=== PATIENT | female | born 1945 | race Caucasian/White ===

== ENCOUNTER 2016-12-13 05:00 | Emergency (ER) | payer MEDICARE, OTHER ==
[~2016-12-13] VITALS: Ht 165.1 cm; Wt 85.9 kg
[~2016-12-13 05:00] MED LIST: LISI-567 PO; LOVA20TA PO
[2016-12-13 05:06] VITALS: BP 147/85; PULSE 68; RESP 18; O2SAT 99
[2016-12-13] MEDS ORDERED: Fluorescein 0.6 mg Ophthalmic Strip ONE (05:10)
[2016-12-13] MEDS ORDERED: 0.9% Sodium Chloride Inhalation Solution ONE (05:10)
[2016-12-13] MEDS ORDERED: Tetracaine 0.5% 4 mL Ophthalmic Solution ONE (05:11)
--- NOTE | 2016-12-13 05:15 | ED.REPORT ---
HPI-Eye Problem Date of Service Dec 13, 2016 ED Provider: Ryder Ramírez MD The patient is a 71 year old female with a history of HTN, hypercholesterolemia , hysterectomy, and cholecystectomy not on blood thinners presenting to the ED complaining of left eye pain onset just prior to arrival after accidentally poking her eye with her finger. She admits to photophobia. She denies any decrease in vision. Nursing Notes Stated Complaint: LEFT EYE INJURY Chief Complaint: Eye Nursing Notes Reviewed: Yes Allergies: Coded Allergies: Sulfa (Sulfonamide Antibiotics) (Verified Allergy, Unknown, 12/13/16) methocarbamol (Verified Allergy, Unknown, 12/13/16) Scheduled Lisinopril (Lisinopril) 20 Mg Tablet 20 MG PO BID Lovastatin (Lovastatin) 20 Mg Tablet 20 MG PO HS General Time Seen by MD: 05:15 Chief Complaint Left eye affected Hx Obtained From: Patient Arrived By: Walk-in Sudden in Onset?: Yes Onset Occurred: Just prior to arrival Symptom Duration: Since onset Progression Since Onset: Unchanged Caused by: Poked in eye... (Finger) Context: Occurred at: Home Location: : Eye left Associated with: Reports: Photophobia Exacerbated by: Light Immunizations: All up to date Recent Healthcare: No recent hospitalization, Recent doctor visit Similar Sx Previous: No Past Medical History Past Medical History HTN Hypercholesterolemia Reports: Hypertension Past Surgical History Hysterectomy Cholecystectomy Reports: Cholecystectomy, Hysterectomy Smoking History Never Smoker Social History Alcohol Use: Denies alcohol use Drug Use: Denies drug use Other Social History: Good social support, Ambulatory Status Independent Review of Systems Eyes: Reports: Eye pain left, Photophobia, Denies: Visual loss bilateral Complete sys rev & neg: except as marked. Physical Exam Initial Vital Signs Vital Signs (First) Date Time Temp Pulse Resp B/P Pulse Ox O2 Delivery O2 Flow Rate FiO2 12/13/16 05:06 36.2 68 18 147/85 99 Room Air Initial VS: Reviewed General / Const: Well-developed, Well-nourished ENT: Mucous membranes moist Neck: Supple, Non-tender, Full range of motion Respiratory: Breath sounds normal, No respiratory distress Cardiovascular: Regular rate & rhythm, Heart sounds normal Abdomen / GI: Soft, Non-tender Back: No CVA tenderness Lymphatic: No lymphadenopathy Extremities: Vascular intact, Neuro intact, No swelling, No tenderness Skin: Warm, Dry Neurologic: Alert, Oriented Psychiatric: Mood/affect normal, Behavior normal, Normal thought content Head / Eyes: Normocephalic, PERRL Large subconjunctival hemorrhage to left eye Small scrape off visual portion of the left sclera Procedures Slit Lamp Exam Time: 05:18 Procedure Performed by: ED physician Which Eye: Left Dilating Agent & Anesthesia: Anesthesia: Tetracaine Re-Eval/Medical Decision Med Decision/Clinical Course 71-year-old on aspirin but no other anticoagulants presents with a conjunctival hemorrhage sustained after scratching her eye accidentally in her sleep. I exam otherwise benign with no hyphema and no pupil irregularity and minimal scleral abrasion. Home with erythromycin ointment. Follow up with PCP. Re-Evaluation/Progress : Time of Eval: 05:25 Re-Evaluation/Progress Note: Patient rechecked. Discussed plan to discharge. All questions addressed at this time. Counseled Regarding: Diagnosis, Need for follow-up, When/why to return to ED Discharge & Departure Primary Impression: Subconjunctival hemorrhage, traumatic Laterality: left Qualified Code: H11.32 - Conjunctival hemorrhage, left eye Disposition: Home Discharge Condition All VS Reviewed: Yes Condition: Improved Patient Instructions: Corneal Abrasion (ED), Subconjunctival Hemorrhage (ED) Additional Instructions: Erythromycin ointment 1/4 inch squiggle into the lower eyelid four times daily for five days. This will resolve spontaneously. It is not dangerous. Follow-up with your doctor in the office. Return if any immediate issues. Referrals: Doug Durán MD (PCP) Scribe Attestation Portions of this note were transcribed by Adam Casillas. I, Dr. Ramírez personally performed the history, physical exam and medical decision-making; I reviewed and confirmed the accuracy of the information in the transcribed note. Signed by: Edgar Zavala, 12/13/2016 copies to: Doug Durán MD, Christopher W MD Dec 13, 2016 05:15 Dec 13, 2016 05:24
[2016-12-13] MEDS ORDERED: Erythromycin 0.5% 3.5 Gm Ophthalmic Ointment LEFT_EYE SCH ×3 (05:45→08:30)
[2016-12-13 06:36] VITALS: BP 142/84; PULSE 72; RESP 16; O2SAT 98
== END 2016-12-13 06:37 | disposition home or self-care (01) ==
LOC: SED 05:00
DX: H11.32 Conjunctival hemorrhage, left eye (principal); W22.8XXA Striking against or struck by other objects, initial encounter; Y93.89 Activity, other specified; Y99.8 Other external cause status; Y92.89 Other specified places as the place of occurrence of the external cause; I10 Essential (primary) hypertension; E78.00 Pure hypercholesterolemia, unspecified; Z90.49 Acquired absence of other specified parts of digestive tract; Z79.82 Long term (current) use of aspirin; Z88.2 Allergy status to sulfonamides; Z88.8 Allergy status to other drugs, medicaments and biological substances